=== PATIENT | female | born 1960 | race Caucasian/White ===

== ENCOUNTER 2016-12-26 21:07 | Emergency (ER) | payer OTHER ==
[2016-12-26] MEDS ORDERED: methylPREDNISolone SOD SUCC 125 MG/2 ML VIAL ONE (21:15)
--- NOTE | 2016-12-26 21:19 | ED Physician Documentation ---
General Adult - HISTORIAN Historian: patient - HPI Stated Complaint: bee stings Chief Complaint: General Adult Onset: minutes Timing: still present Severity: moderate Further Comments: yes (Pt is a 56 yo female who was stung multiple times by bees while sitting on her porch. Pt became lightheaded and sob. Pt did not have difficulty swallowing. Pt had been stung by a bee on one previous occasion. Pt was given epinephrine and benadryl area captain by EMT. Pt has low oxygen saturation (SpO2=86% RA) on presentation. She is a heavy smoker.) - ROS CONST: weakness, other (lightheadedness) EYES/ENT: none CVS/RESP: shortness of breath GI/: none MS/SKIN/LYMPH: other (bee stings) - PAST HX Past History: hypertension Allergies/Adverse Reactions: Allergies Allergy/AdvReac Type Severity Reaction Status Date / Time No Known Allergies Allergy Verified 12/26/16 21:38 Home Medications: Ambulatory Orders Medication Instructions Recorded Hydrochlorothiazide [Hydrodiuril] 12.5 mg PO D 12/26/16 - SOCIAL HX Smoking History: cigarettes, greater than 1 pack/day - FAMILY HX Family History: No - VITAL SIGNS Vital Signs: Vital Signs Temp Pulse Resp BP Pulse Ox 154/71 10/17/12 05:52 - REVIEWED ASSESSMENTS Nursing Assessment Reviewed: Yes Vitals Reviewed: Yes Progress - Progress Progress: 0.3 mg epinephrine and 50 mg benadryl area captain. Solu-medrol 125 mg IV in ER. Allergic rxn improved. Duoneb HFN for wheezing Albuterol HFN SpO 86% on RA SpO2 92% on 8 L NC KCl 20 mEq po x 1 in ER for potassium = 3.0. Pt refuses admission for probable COPD and signs out AMA. Pt urged to f/u with pcp Dr. Dong as soon as possible. Rx Prednisone 50 mg. Take one tablet by mouth once daily for 4 days. Rx Albuterol (90 mcg/spray) MDI. Take 2 puffs every 4 to 6 hrs as needed for wheezing. Rx KCl 20 mEq po qd, & f/u with pcp for re-eval of potassium level. Follow up with primary provider for evaluation of probable COPD/emphysema and for treatment regimen and for help to quit smoking. ED Results Lab/Radiology - Orders Orders: ED Orders Category Date Time Status methylPREDNISolone SOD SUCC [Solu-MEDROL] 125 mg Med 12/26/16 21:15 Discontinued 0.9 % Sodium Chloride [Sodium Chloride] 100 ml IV NOW General Adult Physical Exam - PHYSICAL EXAM GENERAL APPEARANCE: moderate distress EENT: pharynx normal NECK: normal inspection, supple RESPIRATORY: wheezes (b/l) ABDOMEN: soft, no organomegaly, normal bowel sounds BACK: normal inspection SKIN: other (multiple punctate bee stings on hands/fingers) EXTREMITIES: non-tender, normal range of motion, no evidence of injury NEURO: oriented X3, motor nml, sensation nml Discharge Clincal Impression: Allergic reaction to bee stings, Probable COPD, Hypokalemia Referrals: Filemon Preciado MD [Primary Care Provider] - 2 Days Home Medications: Ambulatory Orders Hydrochlorothiazide [Hydrodiuril] 12.5 mg PO D 12/26/16 Condition: Fair Disposition: AGAINST MEDICAL ADVICE Decision to Admit: NO Decision Time: 23:39
[2016-12-26] MEDS ORDERED: IPRATROPIUM/ALBUTEROL SULFATE 3 ML AMPUL.NEB NEB ONE (21:27)
[2016-12-26] MEDS: IPRATROPIUM/ALBUTEROL SULFATE 3 ML AMPUL.NEB NEB ONE (21:31)
[2016-12-26] MEDS ORDERED: SODIUM CHLORIDE 3 ML VIAL.NEB IH ONE (22:26)
[2016-12-26 22:40] LABS: BASOPHILS % 0.5 (0.0-1.5); EOSINOPHILS % 0.6 % (0.0-6.8); MEAN CORPUSCULAR HEMOGLOBIN 31.1 pg (28.0-34.0); MEAN CORPUSCULAR VOLUME 94.5 fl (80.0-100.0); MONOCYTES % 2.8 % (0.0-11.0); NEUTROPHILS # 14.9 # k/uL (1.4-7.7)
[2016-12-26] MEDS: ALBUTEROL SULFATE 2.5 MG/0.5 ML AMPUL.NEB NEB ONE (22:42)
[2016-12-26 22:51] LABS: eGFR (African) > 60; eGFR (Non-African) > 60
[2016-12-26] MEDS: POTASSIUM CHLORIDE 20 MEQ TABLET.ER PO ONE (23:05)
[2016-12-27 00:37] VITALS: BP 160/74
[2016-12-27 05:55] LABS: APPEARANCE,URINE CLEAR (CLEAR); COLOR,URINE YELLOW (YELLOW); OCCULT BLOOD,URINE TRACE-INTACT (NEGATIVE); PH URINE 6.5 (5.0 - 8.0); UROBILINOGEN URINE 0.2 Eu (0.2-1.0)
--- NOTE | 2016-12-27 06:44 | Diagnostic Imaging Report ---
FLACO OCHOA [facility] [id number] [facility]ly [facility] [address] [address] Report Submission Date: Dec 26, 2016 9:57:41 PM CDT Patient Study Name: IAIN MEJIA Date: Dec 26, 2016 9:42:19 PM CDT Modality Type: CR Gender: F Description: CHEST : 56 Institution: [facility] Physician: FLACO OCHOA Chest, AP portable History: Cough, shortness of breath Findings: No infiltrate, effusion or pneumothorax is present. The heart is enlarged. Pulmonary vascularity is normal. Impression: 1. Cardiomegaly. 2. No acute abnormality. Electronically signed on Dec 26, 2016 9:57:41 PM CDT by: Alexandro COLLAZO
== END 2016-12-26 23:30 | disposition left against medical advice (07) ==
LOC: ED 21:07
DX: T63.441A Toxic effect of venom of bees, accidental (unintentional), initial encounter (principal); X58.XXXA Exposure to other specified factors, initial encounter; Y93.9 Activity, unspecified; Y99.9 Unspecified external cause status; E87.6 Hypokalemia
CPT/HCPCS: 71010; 80053; 81002; 83880; 85025; 85379; A9270; J2930; 96365; 99283